=== PATIENT | male | born 1995 | race African-American/Black ===

== ENCOUNTER 2017-10-27 23:05 | Emergency (ER) | payer BC ==
[~2017-10-27] VITALS: Ht 180.3 cm; Wt 79.5 kg
[2017-10-27 23:49] VITALS: BP 115/63; TEMP 96.8
[2017-10-28 00:01] VITALS: PULSE 70
== END 2017-10-27 23:57 | disposition home or self-care (01) ==
LOC: COL.ER 23:05
DX: S01.512A Laceration without foreign body of oral cavity, initial encounter (principal); W22.8XXA Striking against or struck by other objects, initial encounter; Y93.67 Activity, basketball

== ENCOUNTER 2018-08-14 19:22 | Emergency (ER) | payer BC ==
[~2018-08-14] VITALS: Ht 180.3 cm; Wt 79.5 kg
[2018-08-14 19:31] VITALS: BP 121/59
[2018-08-14 20:29] LABS: BASO % 0.4 % (0.0-2.0); GRAN # 4.6 (1.4-6.5); GRAN % 80.7 % (42.2-75.2); HEMATOCRIT 45.4 % (42.0-52.0); HEMOGLOBIN 14.6 g/dl (13.5-18.0); LYMPH # 0.5 (1.2-3.4); LYMPH % 7.9 % (20.0-51.0); MEAN CELL VOLUME 84 fl (80.0-100.0); MEAN CORPUSCULAR HEMOGLOBIN 27 pg (27.0-31.0); MEAN CORPUSCULAR HGB CONC 32 g/dl (33.0-37.0); MEAN PLATELET VOLUME 10.1 fl (7.4-10.4); MONO # 0.6 (0.1-0.6); MONO % 10.8 % (1.7-9.3); PLATELET COUNT 176 K/mm3 (130-400); RED BLOOD COUNT 5.44 M/mm3 (4.20-5.60); REDCELL DISTRIBUTION WIDTH-CV 13.8 % (11.5-14.5)
[2018-08-14 20:39] LABS: ALBUMIN 4.4 gm/dL (3.5-5.0); BILIRUBIN,TOTAL 0.8 mg/dL (0.0-1.0); C-REACTIVE PROTEIN 5.2 mg/dL (0.0-0.9); CALCIUM 9.3 mg/dL (8.4-10.2); CREATININE, serum 1.03 mg/dL (0.66-1.25); POTASSIUM 3.6 mmol/L (3.4-5.0); TOTAL PROTEIN 7.9 gm/dL (6.4-8.2)
[2018-08-14] MEDS ORDERED: ZOFRAN ODT4 MG PO (21:15)
[2018-08-14 21:47] VITALS: PULSE 95; TEMP 101
== END 2018-08-14 21:50 | disposition home or self-care (01) ==
LOC: COL.ER 19:22
PROVIDERS: Emergency Medicine
DX: J11.1 Influenza due to unidentified influenza virus with other respiratory manifestations (principal)
CPT/HCPCS: J1885; J2405; J7030